=== PATIENT | male | born 1965 | race African-American/Black ===

== ENCOUNTER 2020-11-01 12:23 | Outpatient (CLI) | payer OTHER ==
[2020-11-01 23:16] LABS: SARS-CoV-2 PCR by NAA Not Detected (NotDetected)
== END 2020-11-01 12:24 | disposition home or self-care (01) ==
LOC: CSHLAB 12:23
PROVIDERS: ATTEND Orthopaedic Surgery
DX: Z20.822 Contact with and (suspected) exposure to COVID-19 (principal); R06.02 Shortness of breath
CPT/HCPCS: 87635; U0003; U0005

== ENCOUNTER 2020-11-06 15:18 | Outpatient (CLI) | payer OTHER | END 2020-11-06 15:19 | disposition home or self-care (01) | LOC: CSHCP 15:18 | PROVIDERS: ATTEND Orthopaedic Surgery | DX: R06.02 Shortness of breath (principal); R91.8 Other nonspecific abnormal finding of lung field; R94.2 Abnormal results of pulmonary function studies | CPT/HCPCS: 71046; 94010; 94760 ==